=== PATIENT | female | born 2000 | race African-American/Black ===

== ENCOUNTER → 2019-11-09 | Outpatient (CLI) | payer OTHER, BC ==
--- NOTE | 2019-11-14 14:30 | RESP ---
DATE OF SERVICE: 11/09/2019 ATTENDING PHYSICIAN: Kaia Herrera, [employer] The patient underwent pulmonary function testing on 11/09/2019. FEV1 to FVC ratio was 90%. FEV1 was 3.14 liters. FVC was 3.45 liters. The diffusion capacity was elevated. Residual volume was slightly elevated. Total lung capacity was normal. IMPRESSION: 1. No significant evidence of obstructive or restrictive lung disease. 2. Elevated diffusion capacity. HANNAH BLANC MD DR: ROSA/juan JOB#: [id number] / [id number]
== END | disposition home or self-care (01) ==
LOC: PF 09:39
PROVIDERS: ATTEND Nurse Practitioner Family
DX: R06.02 Shortness of breath (principal)
CPT/HCPCS: 94010; 94726; 94729